=== PATIENT | female | born 1990 | race Caucasian/White ===

== ENCOUNTER 2017-03-28 16:59 | Emergency (ER) | payer OTHER ==
[~2017-03-28] VITALS: Wt 60.0 kg
[~2017-03-28 16:59] MED LIST: PREN1TAB49 PO
[2017-03-28] MEDS ORDERED: KETOROLAC 15 MG INJ IM STA (19:36)
--- NOTE | 2017-03-28 19:36 | ERD ---
ER Documentation Chief Complaint Date/Time DATE: 03/28/17 TIME: 19:32 Chief Complaint back pain HPI This 26-year-old female presents to emergency department with complaint of low back spasm x2 days, pain described as sharp, worse with AMB, improved with laying down. pt has hx of back pain states that it usually resolved with time and Tylenol Pt denies pain with urinating, ROS All systems reviewed and are negative except as per history of present illness. Medications Home Meds Reported Medications Vits W-Ca,Fe,Fa(<1MG) () 1 Tab Tablet, 1 TAB PO 11/21/11 Allergies Allergies: Coded Allergies: No Known Allergy (Unverified , 11/21/11) PMhx/Soc Medical and Surgical Hx: pt denies Medical Hx, pt denies Surgical Hx Hx Alcohol Use: No Hx Substance Use: No Hx Tobacco Use: No Smoking Status: Never smoker Physical Exam Vitals Vital Signs Date Time Temp Pulse Resp B/P Pulse Ox O2 Delivery O2 Flow Rate FiO2 03/28/17 17:03 98.3 99 18 125/76 99 Vitals stable, triage notes reviewed Physical Exam Const: Nourished well-hydrated well-appearing in obvious discomfort no acute distress Head: Atraumatic Eyes: Normal Conjunctiva, PERRLA, EOMI ENT: Neck: Resp: Cardio: Abd: Skin: Back Exam: Skin: No bruising or rash Compartments: Soft Motor: Right leg rises positive bilaterally at 30 pain with abduction and abduction pain with rising from supine positioning. Sensation: Intact to light touch throughout Bones: No midline TTP Ext: Neur: Awake and alert Psych: Normal Mood and Affect Results 24 hrs Laboratory Tests Test 03/28/17 20:08 Bedside Urine pH (LAB) 6.0 Bedside Urine Protein (LAB) Negative Bedside Urine Glucose (UA) Negative Bedside Urine Ketones (LAB) Negative Bedside Urine Blood Negative Bedside Urine Nitrite (LAB) Negative Bedside Urine Leukocyte Esterase (L Negative Current Medications Medications (Trade) Dose Ordered Sig/Alissa Route PRN Reason Start Time Stop Time Status Last Admin Dose Admin Ketorolac Tromethamine (Toradol) 15 mg ONCE STAT IM 03/28/17 19:36 03/28/17 19:37 DC 03/28/17 20:06 Diazepam (Valium) 5 mg ONCE ONCE IM 03/28/17 20:00 03/28/17 20:01 DC 03/28/17 20:06 Procedures/MDM This 26-year-old female presents to emergency department with her for evaluation and treatment of back pain. Back pain started 2 days ago while sitting at her vanity table reports she has a backless chair with sitting for several minutes before she felt a pull in her low back. Patient reports history of lumbar strain usually resolves without any intervention sometimes uses [id number] Tylenol patient reports that no intervention is improving current symptoms. She is having difficulty walking, standing, sleeping, finding a position of comfort to sleep in. I have little suspicion for a fracture vertebral disc or herniation. Patient straight leg rises are positive patient will be treated for a lumbar sacral sprain/strain with 15 mg of Toradol intramuscularly, 5 mg of Valium p.o. reassessed after 60 minutes with improvement of symptoms. Patient will be discharged home with Naprosyn 1 tab p.o. twice daily with food 10 month Valium 5 mg 1 tab p.o. 3 times daily as needed myopathy. Return to emergency department for alteration in bowel or bladder, incontinence, or symptoms failing to improve as anticipated. Patient is stable with no new complaints during ER course, clinically there is no current evidence to suggest pyelonephritis, urinary tract infection, cauda equina syndrome or any other emergent condition appearing to require further evaluation or hospitalization. I feel the patient is stable for discharge at this time. I have discussed results, examination findings, the treatment plan with the patient and family present prior to discharge. Indications for emergent reevaluation, side effects of medication were also discussed. All questions were answered. Patient verbalizes understanding and agrees with plan of care. Departure Diagnosis: Primary Impression: Lumbar strain Encounter type: initial encounter Qualified Code: S39.012A - Strain of lumbar region, initial encounter Condition: Good Patient Instructions: Back Exercises, Lumbar, Causes of Lumbar (Low Back) Pain Referrals: [facility] Additional Instructions: Thank you for for coming to [facility] for your care today. Please ask your nurse or provider if you have questions about your care today and do not leave until all your questions have been answered. Please use any medications given as directed and follow-up with your doctor (or the doctor you were referred to) in the next 2-3 days. If you do not have a primary care doctor you may follow up at the [facility] (listed below). You may also use motrin and tylenol as needed for fever and/or pain unless instructed otherwise by your provider or nurse. Indications for more urgent follow-up have been discussed, but you may return to the Emergency Department at ANY time for any worrisome or worsening symptoms. If you have abdominal pain, please know that no test or exam you received is perfect and you should follow up within 8 hours for continued pain. If you had any imaging studies today, such as an X-Ray or CT Scan, these studies will be reviewed later by a radiologist. You will be called if there are important findings that were not identified today, so make sure the contact information you provided at registration is correct. If you received any narcotic pain control medicine today, such as Vicodin, Morphine or Dilaudid, your coordination and judgment may be affected for a number of hours. Please do not drive or operate heavy machinery, and you may want someone to assist you at home. If you were given a prescription for narcotic medication, be aware that it is very addictive- use sparingly and only if necessary. LESVIA MASSEY Mar 28, 2017 19:36
[2017-03-28] MEDS ORDERED: DIAZEPAM 5 MG/ML SYG IM ONE (20:00)
[2017-03-28 20:02] LABS: URINE BLOOD (Dip) POC Negative (NEGATIVE)
[2017-03-28] MEDS ORDERED: NAPR-260 PO (20:53)
[2017-03-28] MEDS ORDERED: DIAZ-90 PO (20:54)
[2017-03-28 21:19] VITALS: BP 113/71; PULSE 80; RESP 20
== END 2017-03-28 21:21 | disposition home or self-care (01) ==
LOC: FTE 16:59
DX: S39.012A Strain of muscle, fascia and tendon of lower back, initial encounter (principal); X58.XXXA Exposure to other specified factors, initial encounter; Y92.9 Unspecified place or not applicable
CPT/HCPCS: 81003; 96372; J1885; J3360; Z7502